=== PATIENT | female | born 1990 | race Caucasian/White ===

== ENCOUNTER 2025-06-08 12:09 | Emergency (ER) | payer BC ==
[2025-06-08 12:28] VITALS: BP 129/77; PULSE 76
[2025-06-08] MEDS: Take Home: Albuterol 18 GM Inhaler, 1 Inhaler Pack INH PRN (12:33)
== END 2025-06-08 12:38 | disposition home or self-care (01) ==
LOC: VM.ED 12:09
DX: J06.9 Acute upper respiratory infection, unspecified (principal); B97.89 Other viral agents as the cause of diseases classified elsewhere
CPT/HCPCS: 99283; A9270